=== PATIENT | female | born 2005 | race African-American/Black ===

== ENCOUNTER 2025-04-13 05:52 | Emergency (ER) | payer OTHER ==
[~2025-04-13] VITALS: Ht 170.2 cm; Wt 61.4 kg
[~2025-04-13 05:52] MED LIST: FERR324T21 PO; VENTAER INH
[2025-04-13] MEDS ORDERED: IBUP600T42 PO (07:51)
[2025-04-13] MEDS ORDERED: AMOX875T2 PO (07:51)
[2025-04-13] MEDS: AUGMENTIN 875 MG TAB PO ONE (08:12)
[2025-04-13 08:30] VITALS: BP 121/65; TEMP 97.5; O2SAT 100
== END 2025-04-13 08:39 | disposition home or self-care (01) ==
LOC: M ED 05:52
DX: J03.00 Acute streptococcal tonsillitis, unspecified (principal); J45.909 Unspecified asthma, uncomplicated; Z79.2 Long term (current) use of antibiotics; Z79.1 Long term (current) use of non-steroidal anti-inflammatories (NSAID); Z79.51 Long term (current) use of inhaled steroids